=== PATIENT | female | born 1950 | race Caucasian/White ===

== ENCOUNTER → 2019-09-28 10:56 | Outpatient (CLI) | payer MEDICARE, SELFPAY ==
--- NOTE | ~2019-09-28 | XR_ITS ---
EXAMINATION: XR chest 2V 09/28/2019 11:09 INDICATION: Essential hypertension PROCEDURE: 2 view chest COMPARISON: No prior studies for comparison. FINDINGS: The lungs are clear. The cardiomediastinal silhouette is within normal limits. There are no pleural effusions. There is no pneumothorax suspected. IMPRESSION: 1: NO ACUTE CARDIOPULMONARY DISEASE. Reviewed, dictated and finalized at location B. ENGRAVER
== END ==
PROVIDERS: PCP Family Medicine; Visit Provider Physician Assistant
DX: I10 Essential (primary) hypertension (principal); R63.4 Abnormal weight loss
CPT/HCPCS: 71046

== ENCOUNTER 2020-05-20 14:58 | Observation (INO) | payer MEDICARE, SELFPAY ==
--- NOTE | ~2020-05-20 | CT_ITS ---
EXAMINATION: CTA brain carotid DATE: 05/20/2020 18:23 INDICATION: Left-sided facial numbness TECHNIQUE: Computed tomographic angiography (CTA) of the head was performed with 100 mL Omnipaque-350 intravenous contrast. CTA of the neck was performed with intravenous contrast. The dose-length produ ct was 1063.06 mGy-cm. Maximum intensity projection and volume rendered 3D-reconstructions were creat ed by the technologist on a separate workstation. Automated exposure control and iterative reconstruc tion technique were employed. COMPARISON: 05/20/2020 FINDINGS: HEAD CTA: There is no intracranial hemorrhage, acute infarction, or abnormal mass lesion. The ventric les are normal. There is no abnormal mass effect or midline shift. The curtis-white matter differentiat ion is normal. The basal cisterns are patent. The orbits are normal. The paranasal sinuses, mastoids and calvarium are normal. There is no significant stenosis of the basilar artery or posterior cerebral arteries. There is no si gnificant stenosis of the intracranial internal carotid arteries or the anterior or middle cerebral a rteries. The anterior communicating artery and right posterior communicating artery are normal. The l eft posterior communicating artery artery is hypoplastic or absent. There is no aneurysm. NECK CTA: The thyroid gland is unremarkable. The submandibular and parotid glands are symmetric. Ther e is no lymphadenopathy. There are no masses identified. The airway is unremarkable. Mild cervical sp ondylosis is noted. There are areas of air-trapping in the visualized lung apices which may reflect s mall airways disease. The superior mediastinum is unremarkable. There is 0% stenosis of the proximal right internal carotid artery relative to normal distal artery l umen diameter (NASCET criteria). There is 0% stenosis of the proximal left internal carotid artery re lative to normal distal artery lumen diameter. IMPRESSION: 1. No acute intracranial abnormality. Unremarkable head CTA. 2. 0% stenosis of the proximal right internal carotid artery relative to normal distal artery lumen d iameter (NASCET criteria). 3. 0% stenosis of the proximal left internal carotid artery relative to normal distal artery lumen di ameter. Reviewed, dictated and finalized at location A. IMPRESSION: 1. No acute intracranial abnormality. Unremarkable head CTA. 2. 0% stenosis of the proximal right internal carotid artery relative to normal distal artery lumen diameter (NASCET criteria). 3. 0% stenosis of the proximal left internal carotid artery relative to normal distal artery lumen diameter.
--- NOTE | ~2020-05-20 | MR_ITS ---
EXAMINATION: MR brain/brain stem wo/w con DATE: 05/22/2020 08:28 INDICATION: Stroke presenting with left facial numbness TECHNIQUE: Magnetic resonance imaging (MRI) of the brain and brainstem was performed without and with 10 mL Multihance intravenous contrast. Sequences included sagittal and axial T1-weighted SE, axial d iffusion-weighted FS SE, axial T2*-weighted GRE, axial T2-weighted FLAIR, and axial T2-weighted FSE. Postcontrast axial and coronal T1-weighted SE was obtained. Apparent diffusion coefficient (ADC) maps were created. COMPARISON: Brain CT and CT angiogram dated 05/20/2020 FINDINGS: There are no areas of restricted diffusion to suggest acute infarction. No intracranial hemorrhage or abnormal intracranial mass lesion. There are couple tiny foci of nonspecific white matter T2 hyperin tensity which is well within normal limits for age. There are no intraparenchymal signal abnormalitie s seen on the other pulse sequences. The ventricles are symmetric and normal in size. There are no ab normal extra-axial fluid collections. Flow voids are seen in the cerebral arteries on the T2-weighted sequences consistent with their expected patency. Mild mucoperiosteal thickening the bilateral ethmo id sinuses. Visualized orbits and soft tissues are unremarkable. There are no areas of abnormal enhan cement on the post contrast images. IMPRESSION: 1. Normal aging brain. No acute intracranial process or abnormally enhancing brain lesions. Reviewed, dictated and finalized at location A. IMPRESSION: 1. Normal aging brain. No acute intracranial process or abnormally enhancing br ain lesions.
--- NOTE | ~2020-05-20 | XR_ITS ---
XR chest 1V DATE: 05/20/2020 15:51 INDICATION: Dizziness, left facial numbness. TECHNIQUE: PA chest COMPARISON: 09/28/2019 PA and lateral views FINDINGS: Normal heart size. No hilar or mediastinal enlargement. No pulmonary infiltrate or consolid ation, pleural effusion or pulmonary vascular congestion or pneumothorax. Surgical clips, right upper quadrant, consistent with cholecystectomy. IMPRESSION: No active cardiopulmonary disease Reviewed, dictated and finalized at location A.
--- NOTE | ~2020-05-20 | CT_ITS ---
EXAMINATION: CT brain wo con DATE: 05/20/2020 15:40 INDICATION: Left facial numbness TECHNIQUE: Computed tomography (CT) of the head was performed without intravenous contrast. The mA wa s adjusted according to patient size. Iterative reconstruction technique was employed. Exam dose: 60 5.33 mGy-cm total exam DLP. COMPARISON: None FINDINGS: No intracranial mass lesion or hemorrhage or cerebrovascular accident. No midline shift or mass effects. Normal curtis-white matter differentiation. Normal ventricular size. No subdural or epidu ral hematoma. No fracture or bone destruction of the cranial vault. The mastoid air cells and included paranasal sinuses are normally developed and aerated. IMPRESSION: Negative CT examination would not be sensitive for detection of the any transient ischemic attack or hyperacut e ischemic cerebrovascular infarct. Reviewed, dictated and finalized at Location A. Reviewed, dictated and finalized at location A. IMPRESSION: Negative CT examination would not be sensitive for detection of the any transient ischem ic attack or hyperacute ischemic cerebrovascular infarct.
[2020-05-20 15:12] VITALS: BP 151/67; PULSE 76; RESP 18; TEMP 36.5; O2SAT 100
--- NOTE | 2020-05-20 15:15 | ECG_ITS ---
Measurements Intervals [place] Rate: 66 P: 70 OK: 159 QRS: 62 QRSD: 88 T: 61 QT: 405 QTc: 427 Interpretive Statements SINUS RHYTHM POSSIBLE LEFT ATRIAL ENLARGEMENT BORDERLINE ECG Electronically Signed On 05-20-2020 15:36:41 CDT by Philip Deal D.O.
[2020-05-20 15:30] LABS: Basophils Absolute Auto 0.1 K/mm3 (0.0-0.1); Basophils Percent Auto 0.7 % (0.2-1.2); Eosinophils Absolute Auto 0.1 K/mm3 (0-0.3); Eosinophils Percent Auto 1.3 % (0-4.4); Hematocrit 37.9 % (37.0-47.0); Hemoglobin 12.7 g/dL (12.0-15.0); Immature Granulocyte Absolute 0.03 K/mm3 (0.00-0.031); Immature Granulocyte Percent A 0.4 % (0-0.5); Lymphocytes Absolute Auto 2.33 K/mm3 (0.9-3.2); Lymphocytes Percent Auto 31.2 % (18.3-44.2); Mean Corpuscular HGB Conc 33.5 g/dl (32-36); Mean Corpuscular Hemoglobin 30.8 pg (26-34); Mean Corpuscular Volume 91.8 fl (80-100); Mean Platelet Volume 10.6 fl (7.4-10.4); Monocytes Absolute Auto 0.6 K/mm3 (0.1-0.6); Monocytes Percent Auto 8.4 % (2.6-8.5); Neutrophils Absolute Auto 4.3 K/mm3 (1.3-6.7); Platelet Count Result 203 k/mm3 (150-375); Red Blood Count 4.13 M/mm3 (4.2-5.4); Red Cell Distribution Width 12.8 % (11.5-14.5); White Blood Count 7.5 K/mm3 (4.5-10.0)
[2020-05-20 15:37] LABS: Prothrombin Time 12.4 Seconds (11.1-14.7)
[2020-05-20 15:39] LABS: Anion Gap 8 mmol/L (8-16); Blood Urea Nitrogen 17 mg/dL (7-17); Calcium 9.4 mg/dL (8.4-10.2); Carbon Dioxide 29 mmol/L (22-30); Chloride 96 mmol/L (98-107); Estimated CRCL calculation 41 ml/min; Estimated Glomerular Filt Rate 55; Glucose 109 mg/dL (65-105); Potassium 3.4 mmol/L (3.4-5.0); Sodium 133 mmol/L (137-145)
[2020-05-20 15:51] LABS: Troponin I < 0.012 ng/mL (0.000-0.034)
--- NOTE | 2020-05-20 16:33 | ED.NEUROSD ---
HPI - Neuro Symptoms/Deficit General Chief Complaint: Neuro Symptoms/Deficit Stated Complaint: l facial numbness Time Seen by Provider: 05/20/20 16:32 Source: patient Mode of arrival: ambulatory Limitations: no limitations History of Present Illness HPI Narrative: Patient is a 69-year-old female with a history of hypertension who presents for evaluation of left-sided facial numbness. Patient states that left-sided facial numbness has been present over the past 5 hours. She initially noticed the symptoms while she was at religion this morning, the facial numbness originated around the left side of her lip and left tongue, and then expanded to include her entire face. She states it has resided somewhat and she still feels numbness around her left tongue and left side of her lips. Patient without facial droop or dysarthria. No numbness or weakness in her upper or lower extremities. No difficulty with memory or recall. Patient does not have a previous history of any stroke or TIA. Patient states initially at religion she became dizzy, then experienced the facial numbness. She denies any current dizziness. No chest pain or palpitations. Related Data Home Medications Medication Instructions Recorded Confirmed calcium carbonate 500 mg calcium 500 mg PO DAILY 08/17/19 (1,250 mg) tablet raloxifene 60 mg tablet 60 mg PO DAILY 05/16/20 Allergies Allergy/AdvReac Type Severity Reaction Status Date / Time grass pollen Allergy Unknown Unknown Verified 05/20/20 17:56 paroxetine Allergy Unknown Nausea Verified 05/20/20 17:56 Review of Systems Review of Systems: Narrative: CONSTITUTIONAL: Denies fever, chills, or sweats. EYES: Denies visual changes, redness, or discharge. ENT: Denies rhinorrhea, congestion, sore throat, or otalgia. CARDIOVASCULAR: Denies chest pain, palpitations, or edema. RESPIRATORY: Denies cough or dyspnea. GASTROINTESTINAL: Denies abdominal pain, nausea, vomiting, or diarrhea. GENITOURINARY: Denies dysuria or hematuria. SKIN: Denies rash or itching. MUSCULOSKELETAL: Denies back pain, joint pain, or myalgia. NEUROLOGIC: Denies headache, or weakness. Reports numbness around the left lips, left tongue. No current dizziness. PSYCHIATRIC: Denies anxiety or depression. [facility] Past Medical History Medical History HTN (hypertension) Lactose intolerance Migraines Osteoporosis Surgical History Surgical History History of colposcopy History of cryosurgery Social History Social History Smoking status: Never smoker Second hand tobacco smoke exposure: No Alcohol intake: current Substance use: never Gender identity (if verbalized by the patient): Female Exam Narrative: Exam Narrative: GENERAL: Awake, alert, conversant HEAD: Normocephalic, atraumatic. EYES: PERRLA and EOMI. ENT: Nares clear, no rhinorrhea or epistaxis. Mucous membranes moist. NECK: Supple. CHEST: No respiratory distress, breathing even and non labored HEART: Regular rate, sinus rhythm ABDOMEN:Non distended, non tender EXTREMITIES: Normal range of motion. No edema. SKIN: Warm, dry, no rash. NEURO:No focal deficits. Alert and oriented x3. Finger to nose intact bilaterally. EOMs intact without nystagmus. No facial droop/asymmetry noted bilaterally. Grimace intact. Intact sensation in face. Hearing intact bilaterally. Shoulder shrug intact. Strength 5/5 bilateral upper extremities. Strength 5/5 bilateral lower extremities. Reflexes 2+ patellar. Heel to alvarez intact bilaterally. Ambulatory exam deferred. Course Vital Signs Vital signs: Vital Signs Temperature 36.5 C 05/20/20 15:12 Pulse Rate 76 05/20/20 15:12 Respiratory Rate 18 05/20/20 15:12 Blood Pressure 151/67 H 05/20/20 15:12 Pulse Oximetry 100 05/20/20 15:12 Temperature 36.5 C 05/20/20 15:12 Pul
[2020-05-20 16:45] VITALS: BP 150/85; PULSE 75; RESP 18; O2SAT 100
[2020-05-20] MEDS: ASPIRIN 81 MG CHEWABLE TABLET 324 MG PO (17:45)
[2020-05-20 18:58] VITALS: BP 139/78; PULSE 76; RESP 14; O2SAT 100
--- NOTE | 2020-05-20 19:00 | PM.IMHP ---
H&P: HPI History of Present Illness Date/Time: 05/20/20 19:00 Chief complaint: Left Facial Numbness Narrative: Lien Gonzalez is a very pleasant 69-year-old female with hypertension and osteoporosis who presented to the emergency department earlier this afternoon via private vehicle from home for evaluation of left-sided facial numbness. 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 After she completed thesong, she ate a sandwich and felt somewhat better. They returned home and approximately 3 hours thereafter she developed paresthesias on the left side of her lip and left tongue. Not long after she had paresthesias of the entire left side of her face and her symptoms remain at the time my evaluation. She denies vertigo, acute auditory and visual changes, focal weakness, palpitations, cardiac dysrhythmia, dysarthria, dysphagia, and difficulties with memory or recall. Of note, she was started on raloxifene daily within the past month or so for osteoporosis. Review of Systems Review of Systems: Narrative: Twelve systems were reviewed with pertinent positives and negatives as per HPI. No fever, chills, or sweats. No recent cold or flu symptoms. No sick contacts. No exertional chest pain or shortness of breath. She denies lower extremity edema, calf pain, tenderness, recent travel, and history of venous thromboembolism. more recently she has been following a FODMAP diet as she was having many GI issues and had weight loss. Her symptoms seem to have resolved with this new diet. Except as documented, all other systems were reviewed and are negative. [facility] Past Medical History Medical History (Updated 05/20/20 @ 22:27 by Corinna Shahid PA-C) Essential hypertension Osteoporosis Rosacea Surgical History Surgical History (Updated 05/20/20 @ 22:24 by Corinna Shahid PA-C) History of cholecystectomy (~06/2019) History of ventral hernia repair (~06/2019) Family History Family History Father Cerebrovascular accident Hypertension Coronary artery disease Sibling Hypertension Hepatitis C Paget's disease Irritable bowel syndrome Mother Hepatitis C Father Hypertension Cerebrovascular accident Family history of coronary artery disease Sibling Hypertension Family history of hepatitis Family history of irritable bowel syndrome Mother Family history of hepatitis Grandparent Carcinoma of colon Mother Family history of glaucoma Family history of hepatitis Father Hypertension Family history of cardiovascular disease Sibling Hypertension Family history of hepatitis Family history of malignant neoplasm of breast in first degree relative, Onset Age: 50 Grandparent Family history of cardiovascular disease Family history of malignant neoplasm Carcinoma of colon, Onset Age: 80 Social History Social History (Updated 05/20/20 @ 22:25 by Corinna Shahid PA-C) Social History: The patient lives in [place], [place] with her spouse. They have 2 grown children. She is a retired physical therapist. She is a lifelong non-smoker and drinks 2 glasses of wine a week. No illicit substance use. She designates her and 2 sons as her surrogate decision makers and she wishes to be a full code. Smoking status: Never smoker Second hand tobacco smoke exposure: No Alcohol intake: current Drinks per week: 2 Substance use: never Gender identity (if verbalized by the patient): Female Spiritual care concerns: No Meds Home Medications and Allergies Home Medications Medication Instructions Recorded Confirmed Type calcium carbonate 500 mg calcium 500 mg PO DAILY 08/17/19 05/20/20 History (1,250 mg) tablet alendronate 70 mg tablet 70 mg PO WEEKLY #14 tablet 09/16/19 05/20/20 Rx triamterene 37.5 1 cap PO DAILY #90 cap 09/16/19 05/20/20 Rx mg-hydroch
--- NOTE | 2020-05-20 19:15 | ADMGEN ---
This patient, Lien Gonzalez, was admitted to Medical Room 347-01. Patient/family oriented to hospital policies and general routines including ID bracelet, bed and alarms, visiting hours, pain management, procedures, bathroom and other care routines, personal items, smoking policy, room service/diet, and visiting hours. Valuables list has been completed. Information on how to activate the Rapid Response Team has been discussed. Patient/Family are encouraged to report perceived risks to care and to ask questions if they do not understand what they are told or what they should do.
[2020-05-20 19:37] VITALS: BP 134/65; PULSE 67; RESP 18; TEMP 36.8; O2SAT 99
[2020-05-20 20:00] VITALS: PULSE 72
[2020-05-21] VITALS (10 sets, daily range): BP systolic 106–111; BP diastolic 57–67; PULSE 60–75; RESP 16–18; TEMP 36–36.3; O2SAT 96–100
--- NOTE | 2020-05-21 | ECHO_ITS ---
Patient Info Name: Lien Gonzalez Age: 69 years : 1950 Gender: Female Ht: 64 in Wt: 119 lbs BSA: 1.56 m2 HR: 65 bpm BP: 106 / 57 mmHg Heart Rhythm: Sinus Rhythm Technical Quality: Good Exam Date: 05/21/2020 11:04 AM Exam Location: [facility] Patient Status: Inpatient Admit Date: 05/20/2020 Staff Ordering Physician: Beba Schaffer MD Auto Electrician: Gil Foreman RDCS, RT Attending Provider: Estrellita Lynn MD Referring Physician: Karime GUAJARDO; Exam Type: CA echo doppler w bubble study Study Info Indications R01.1 - Cardiac murmur, unspecified Complete two-dimensional, color flow and Doppler transthoracic echocardiogram is performed with agitated saline. Strain analysis performed. Summary 1. Complete two-dimensional, color flow and Doppler transthoracic echocardiogram is performed with agitated saline. 2. Strain analysis performed. 3. Left ventricular chamber dimension is normal. 4. Left ventricular systolic function is normal, estimated at 65-70%. 5. There is mildly increased left ventricular wall thickness. 6. Left ventricular septal wall motion is normal. 7. The left ventricular diastolic function is grade II diastolic dysfunction. 8. Global longitudinal strain is normal at -21 %. 9. Right ventricular chamber dimension is mildly enlarged. 10. Left atrial chamber dimension is mildly enlarged. 11. There is mild aortic valve calcification. 12. There is mild mitral valve regurgitation. 13. There is mild tricuspid valve regurgitation. 14. There is mild pulmonic regurgitation. 15. Intact interatrial septum visualized by color flow and agitated saline imaging. 16. Dilated inferior vena cava with <50% collapse upon inspiration consistent with elevated right atrial pressure, 15 mmHg. Left Ventricle Left ventricular chamber dimension is normal. Left ventricular systolic function is normal, estimated at 65-70%. There is mildly increased left ventricular wall thickness. Left ventricular septal wall motion is normal. The left ventricular diastolic function is grade II diastolic dysfunction. Global longitudinal strain is normal at -21 %. Right Ventricle Right ventricular chamber dimension is mildly enlarged. Right ventricular systolic function is normal. Left Atria Left atrial chamber dimension is mildly enlarged. Right Atria Right atrial chamber dimension is normal. Atrial Septum Intact interatrial septum visualized by color flow and agitated saline imaging. Aortic Valve The aortic valve is trileaflet. There is mild aortic valve sclerosis. There is no aortic valve stenosis. There is trace aortic valve regurgitation. There is mild aortic valve calcification. Pulmonic Valve The pulmonic valve is not well visualized. There is no pulmonic valve stenosis. There is mild pulmonic regurgitation. Mitral Valve The mitral valve has calcified annulus. There is no mitral valve stenosis. There is mild mitral valve regurgitation. Tricuspid Valve The tricuspid valve leaflets are normal. There is no significant tricuspid valve stenosis. There is mild tricuspid valve regurgitation. No pulmonary hypertension, estimated pulmonary arterial systolic pressure is 34 mmHg. Pericardium/Pleural The pericardium appears normal. There is trivial pericardial effusion. Inferior Vena Cava Dilated inferior vena cava with <50% collapse upon inspiration consistent with elevated right atrial pressure, 15 mmHg. Aorta
[2020-05-21 06:18] LABS: Alanine Aminotransferase 17 U/L (4-35); Albumin Level 3.7 g/dL (3.5-5.1); Alkaline Phosphatase 47 U/L (38-126); Anion Gap 3 mmol/L (8-16); Aspartate Amino Transferase 30 U/L (14-36); Bilirubin,Total 0.5 mg/dL (0.2-1.3); Blood Urea Nitrogen 15 mg/dL (7-17); Calcium 8.6 mg/dL (8.4-10.2); Carbon Dioxide 28 mmol/L (22-30); Chloride 103 mmol/L (98-107); Cholesterol 183 mg/dL (0-200); Estimated CRCL calculation 40 ml/min; Estimated Glomerular Filt Rate 55; Glucose 99 mg/dL (65-105); HDL Direct 86 mg/dL; Potassium 3.8 mmol/L (3.4-5.0); Sodium 134 mmol/L (137-145); Triglycerides 74 mg/dL (<150)
[2020-05-21 06:26] LABS: LDL Cholesterol Direct 74 mg/dL
[2020-05-21 07:17] LABS: Folic Acid 10.4 ng/mL (2.76->20)
[2020-05-21] MEDS: CALCIUM CARBONATE (OSCAL) 500 MG TABLET PO (08:29)
[2020-05-21] MEDS: ASPIRIN 81 MG ENTERIC TABLET PO (09:48)
[2020-05-21 10:41] LABS: Total Triiodothyronine (T3) 1.15 NG/ML (0.97-1.69)
--- NOTE | 2020-05-21 15:02 | WPDNEURCNPN ---
Assessment and Plan Assessment and plan (1) Osteoporosis: Code(s): M81.0 - Age-related osteoporosis without current pathological fracture Status: Acute (2) Essential hypertension: Code(s): I10 - Essential (primary) hypertension Status: Acute (3) Numbness and tingling of left side of face: Code(s): R20.0 - Anesthesia of skin; R20.2 - Paresthesia of skin Status: Acute Additional Plan patient tells me that her son has MS and has lot of questions about what could be the etiology of feeling numbness I discussed with her that this is a certainly a a diagnosis of exclusion I do not clinically feel that she has a Lyme disease or multiple sclerosis however the MRI of the brain is mandatory to look into it if not for anything else for the future reasons she also asked me whether the medication she has started about a month ago Evista could be responsible for this however if the brain MRI is negative I will not be quite sure whether the this episodic numbness was related to that this is something she needs to discuss with her physician who has prescribed the medication for the osteoporosis her questions were answered to the best of my satisfaction and to her satisfaction the workup pending is the brain MRI and also the echocardiogram she should continue with the aspirin daily Consult date: 05/21/20 Time Seen: 14:00 HPI: Lien Gonzalez 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 of the left side of the face without any numbness on the extremities and without any weakness she denies any headache nausea vomiting chest pain or shortness of breath her numbness has significantly improved overall except around her left-sided periorbital area which is subjective alone she is hypertensive had never had this episode before there is no family history of stroke she is nonsmoker nondrinker and has a BMI of 20.0 kilogram Review of Systems Review of Systems: All systems reviewed & are unremarkable except as noted in HPI and below PMFSH Past Medical History Medical History Essential hypertension Osteoporosis Rosacea Surgical History Surgical History History of cholecystectomy (~06/2019) History of ventral hernia repair (~06/2019) Family History Family History Father Cerebrovascular accident Hypertension Coronary artery disease Sibling Hypertension Hepatitis C Paget's disease Irritable bowel syndrome Mother Hepatitis C Father Hypertension Cerebrovascular accident Family history of coronary artery disease Sibling Hypertension Family history of hepatitis Family history of irritable bowel syndrome Mother Family history of hepatitis Grandparent Carcinoma of colon Mother Family history of glaucoma Family history of hepatitis Father Hypertension Family history of cardiovascular disease Sibling Hypertension Family history of hepatitis Family history of malignant neoplasm of breast in first degree relative, Onset Age: 50 Grandparent Family history of cardiovascular disease Family history of malignant neoplasm Carcinoma of colon, Onset Age: 80 Social History Social History Social History: The patient lives in [place], [place] with her spouse. They have 2 grown children. She is a retired physical therapist. She is a lifelong non-smoker and drinks 2 glasses of wine a week. No illicit substance use. She designates her and 2 sons as her surrogate decision makers and she wishes to be a full code. Smoking status: Never smoker Second hand tobacco smoke exposure: No Alcohol intake: current Drinks per week: 2 Substance use: never Gender identity (if verbalized by the patient): Female Spiritual care concerns: No Meds
--- NOTE | 2020-05-21 15:31 | PM.IMPN ---
Progress Note: A&P Assessment and Plan (1) Numbness and tingling of left side of face: Code(s): R20.0 - Anesthesia of skin; R20.2 - Paresthesia of skin Status: Acute Assessment and Plan: History is concerning for possible TIA, and it may not be coincidence that she recently started Raloxifene. Head CT negative, head and neck CTA showing 0% stenosis of right and left ICA and no acute intracranial abnormalities. Lipid panel was reviewed and is well within normal limits. Will hold on initiaton of statin therapy at this time. Echo with bubble study was performed with EF 65-70%, grade 2 diastolic dysfunction, and intact interatrial septum She received 324 mg aspirin upon presentation and will continue daily baby aspirin B12 and folate are within normal limits. TSH is very mildly elevated with T3 and T4 within normal limits. Telemetry was reviewed showing normal sinus rhythm with HR in the 60-70s . Continue to monitor on telemetry overnight. She is awaiting MRI. This could not be performed today, therefore she will continue to be observed overnight while awaiting MRI tomorrow morning. (2) Essential hypertension: Code(s): I10 - Essential (primary) hypertension Status: Acute Assessment and Plan: Blood pressures were reviewed and her initial reading was 151/67 on arrival to the emergency department. Permissive hypertension Allowed in the setting of Possible acute CVA. blood pressure reviewed today and is stable in the 110s systolic. Triamterene -HCTZ has been held in light of mild hyponatremia. Monitor blood pressures daily. (3) Osteoporosis: Code(s): M81.0 - Age-related osteoporosis without current pathological fracture Status: Acute Assessment and Plan: She was recently started on raloxifene in the past month. It is possible that this could have contributed to her symptoms, although this is unclear and risks versus benefits of this medication will need to be discussed with the prescriber. Raloxifene has been placed on hold at this time (4) Hyponatremia: Code(s): E87.1 - Hypo-osmolality and hyponatremia Status: Acute Assessment and Plan: Mild hyponatremia, likely related to combination thiazide diuretic therapy. Sodium improved to 134 today. Triamterene/hydrochlorothiazide on hold for now. Resume when clinically appropriate. Subjective Date/time seen: 05/21/20 15:31 Interval history: Date of service: 05/21/2020 Ms. Gonzalez is a 69-year-old female with a history of osteoporosis and hypertension who is seen in follow-up for facial numbness and is being evaluated for CVA vs TIA. She reports that she is feeling much better at this time. Her symptoms have diminished significantly. She still has a small area of her lip and tongue on the left side that is numb. She does not have any additional numbness, tingling, or burning. She had been feeling lightheaded but this has resolved. She denies feeling weak or dizzy. She denies visual changes, speech changes, dysphagia, confusion, headache, or gait changes. She has been ambulating around the room without difficulty and feels steady on her feet. No nausea or vomiting. She has no additional concerns at this time. Her appetite has been good. She has been urinating and had a bowel movement and has not had any issues. She has no acute pain at this time. No chest pain, shortness breath, or palpitations. Review of Systems Review of Systems: Narrative: A 12 point review of systems was reviewed with pertinent positives and negatives as per HPI. Exam Narrative: Exam Narrative: Ms. Gonzalez is a well-nourished, well-appearing 69-year-old female who is sitting up at the bedside. She appears comfortable and is in no acute respiratory distress. HR 72, BP 106/57, RR 18, T 96.8?, 96% on room air Neuro: awake, alert and oriented x4, speech clear, CN II-XII intact, strength 5/5 thro
[2020-05-22] VITALS: PULSE 57
[2020-05-22 04:21] VITALS: PULSE 55
[2020-05-22 04:49] VITALS: BP 100/43; PULSE 57; RESP 14; TEMP 36.4; O2SAT 98
[2020-05-22 05:42] LABS: Hematocrit 34.8 % (37.0-47.0); Hemoglobin 11.5 g/dL (12.0-15.0); Mean Corpuscular Hemoglobin 30.3 pg (26-34); Mean Corpuscular Volume 91.6 fl (80-100); Mean Platelet Volume 10.5 fl (7.4-10.4); Platelet Count Result 185 k/mm3 (150-375); Red Cell Distribution Width 12.7 % (11.5-14.5); White Blood Count 5.8 K/mm3 (4.5-10.0)
[2020-05-22 05:59] LABS: Anion Gap 4 mmol/L (8-16); Blood Urea Nitrogen 20 mg/dL (7-17); Calcium 8.4 mg/dL (8.4-10.2); Carbon Dioxide 30 mmol/L (22-30); Chloride 101 mmol/L (98-107); Estimated CRCL calculation 40 ml/min; Estimated Glomerular Filt Rate 55; Glucose 91 mg/dL (65-105); Potassium 3.8 mmol/L (3.4-5.0); Sodium 135 mmol/L (137-145)
[2020-05-22 06:32] LABS: Glucose Point of Care 92 (65-105)
[2020-05-22] MEDS: ASPIRIN 81 MG ENTERIC TABLET PO (08:49)
[2020-05-22] MEDS: CALCIUM CARBONATE (OSCAL) 500 MG TABLET PO (08:49)
--- NOTE | 2020-05-22 10:14 | PM.DS ---
DS: Admitting Diagnosis Admitting Diagnosis Admitting Diagnosis: Left Facial Numbness DS: Discharge Diagnosis Discharge Diagnosis (1) Transient ischemic attack (TIA): Code(s): G45.9 - Transient cerebral ischemic attack, unspecified Status: Acute Assessment and Plan: Discharge Summary (Date of service 05/22/20): Mrs. Gonzalez is a 69 y.o. female with PMH significant for osteoporosis (recently started on raloxifene 1 month prior), hypertension, and rosacea who presented to the emergency department for the evaluation of left-sided facial numbness including numbness of the left lip, left tongue, and left face. Initial workup in the emergency department CT brain with no evidence of mass, hemorrhage, or infarction. Labs demonstrated mild hyponatremia, low chloride, and troponin <0.012. She was treated with 324mg ASA. TPA was not given due to minimal symptoms (NIHSS 1 for mild sensory deficit). Dr. Adkins with neurology was consulted and recommended CTA, MRI, and echo with bubble study. The patient was admitted for further workup for possible TIA/CVA. Head and neck CTA demonstrated 0% stenosis of right and left ICA and no acute intracranial abnormalities. Lipid panel was reviewed and well within normal limits with excellent HDL of 86 and LDL of 74. The patient wanted to hold on starting statin therapy and discuss this with Dr. Goss. I discussed that statin therapy is generally recommended for secondary ASCVD prevention given concern for TIA. Echo with bubble study was performed and demonstrated EF 65-70%, grade 2 diastolic dysfunction, and intact interatrial septum. B12 and folate were within normal limits. TSH was very mildly elevated with T3 and T4 within normal limits, suggesting subclinical hypothyroidism. Telemetry was reviewed and demonstrated normal sinus rhythm with HR in the 60-70s. MRI was performed and demonstrated no areas of restricted diffusion to suggest acute infarct. She felt much better with near-complete resolution of symptoms. She requested to go home and was discharged home in stable condition on the afternoon of 05/22/20. She was instructed to hold raloxifine and discuss this with the prescribing provider. She was advised to begin ASA EC 81mg and discuss statin therapy with her PCP. (2) Essential hypertension: Code(s): I10 - Essential (primary) hypertension Status: Acute Assessment and Plan: Blood pressures were reviewed and her initial reading was 151/67 on arrival to the emergency department. Permissive hypertension was allowed due to concern for possible acute CVA. Triamterene-HCTZ was held in light of mild hyponatremia and to allow for permissive hypertension. Blood pressures were at target with a few soft readings so triamterene-HCTZ was held at discharge and the patient was encouraged to keep a BP log and follow-up with her PCP outpatient. (3) Osteoporosis: Code(s): M81.0 - Age-related osteoporosis without current pathological fracture Status: Acute Assessment and Plan: She was recently started on raloxifene in the past month. It is possible that this could have contributed to her symptoms, although this is unclear and risks versus benefits of this medication will need to be discussed with the prescriber. Raloxifene was held at discharge and she was advised to discuss this with her PCP and specialists. (4) Hyponatremia: Code(s): E87.1 - Hypo-osmolality and hyponatremia Status: Acute Assessment and Plan: Mild hyponatremia, likely related to combination thiazide diuretic therapy. Sodium improved while triamterene/hydrochlorothiazide was held. (5) Subclinical hypothyroidism: Code(s): E03.9 - Hypothyroidism, unspecified Status: Acute Assessment and Plan: TSH was very mildly elevated with T3 and T4 within normal limits, suggesting subclinical hypothyroidism. Recommend repeat TSH w/reflex fT4 in 4 weeks outpatient. DS: Summary
--- NOTE | 2020-05-22 10:58 | WPDNEUROPN ---
Progress Note: A&P Additional Plan continue the treatment as such Review of Systems Review of Systems: All systems reviewed & are unremarkable except as noted in HPI and below Exam Narrative: Exam Narrative: examination reveals her to be awake alert cooperative head normocephalic with no Tamar bruit ear nose throat examination normal neck is supple with no cervical bruit no thyromegaly no lymphadenopathy motor examination revealed her to have no focal motor deficit reflexes symmetrical plantars downgoing and the normal cranial nerves examination Objective Data Vital Signs Vital Signs: Vital Signs - 24 hr 05/21/20 12:00 05/21/20 14:00 05/21/20 16:00 Temperature 36.3 C L Pulse Rate 75 62 64 Respiratory Rate 18 Blood Pressure 111/67 Pulse Oximetry 100 05/21/20 20:00 05/21/20 20:09 05/22/20 00:00 Temperature 36.2 C L Pulse Rate 66 64 57 L Respiratory Rate 16 Blood Pressure 106/61 Pulse Oximetry 100 05/22/20 04:21 05/22/20 04:49 Temperature 36.4 C Pulse Rate 55 L 57 L Respiratory Rate 14 Blood Pressure 100/43 L Pulse Oximetry 98 Intake/Output Intake/Output: Intake & Output 05/19/20 05/20/20 05/21/20 05/22/20 23:59 23:59 23:59 23:59 Intake Total 1970 440 Output Total 2750 1500 Balance -780 -1060 Meds/Results Medications: Active Medications Generic Name Dose Route Start Last Admin Trade Name Freq PRN Reason Stop Dose Admin Acetaminophen 650 mg 05/20/20 17:54 Tylenol Tablet PO Q4H PRN Mild Pain (1-3) or Fever Aspirin 81 mg 05/21/20 09:05 05/22/20 08:49 Aspirin Ec PO 81 mg QAM ACE Administration Calcium Carbonate 500 mg 05/21/20 09:00 05/22/20 08:49 Oscal 500 Mg PO 500 mg DAILY ACE Administration Radiology Results: ITS Impressions Chest X-Ray 05/20/20 15:53 IMPRESSION: No active cardiopulmonary disease Head CT 05/20/20 15:55 IMPRESSION: Negative CT examination would not be sensitive for detection of the any transient ischemic attack or hyperacute ischemic cerebrovascular infarct. Head/Neck CTA 05/21/20 09:33 IMPRESSION: 1. No acute intracranial abnormality. Unremarkable head CTA. 2. 0% stenosis of the proximal right internal carotid artery relative to normal distal artery lumen diameter (NASCET criteria). 3. 0% stenosis of the proximal left internal carotid artery relative to normal distal artery lumen diameter. Brain MRI 05/22/20 09:28 IMPRESSION: 1. Normal aging brain. No acute intracranial process or abnormally enhancing brain lesions. Labs Labs: Laboratory Results - last 24 hr 05/20/20 05/22/20 05/22/20 15:18 05:27 05:27 WBC 5.8 RBC 3.80 L Hgb 11.5 L Hct 34.8 L MCV 91.6 MCH 30.3 MCHC 33.0 RDW 12.7 Plt Count 185 MPV 10.5 H Sodium 135 L Potassium 3.8 Chloride 101 Carbon Dioxide 30 Anion Gap 4 L BUN 20 H Creatinine 1.00 Estim Creat Clear Calc 40 Estimated GFR 55 L Glucose 91 POC Capillary Glucose 92 Calcium 8.4 Quality VTE Prophylaxis VTE prophylaxis: mechanical ordered
== END 2020-05-22 11:30 | disposition home or self-care (01) ==
LOC: ANHED 18:15 → ANH3MED 18:47
PROVIDERS: Family Medicine; Physician Assistant; Admitting Provider Family Medicine; Emergency Provider Emergency Medicine; PCP Family Medicine; Visit Provider Family Medicine
DX: G45.9 Transient cerebral ischemic attack, unspecified (principal); R20.0 Anesthesia of skin; R20.2 Paresthesia of skin; I10 Essential (primary) hypertension; M81.0 Age-related osteoporosis without current pathological fracture; E87.1 Hypo-osmolality and hyponatremia
CPT/HCPCS: 36415; 70450; 70496; 70498; 70553; 71045; 80048; 80053; 80061; 82607; 82746; 82948; 84439; 84443; 84480; 84484; 85025; 85027; 85610; 85730; 93005; 93306; 96375; 99285; A9270; A9577; G0378; Q9967

== ENCOUNTER → 2021-04-27 01:49 | Outpatient (CLI) | payer MEDICARE, SELFPAY ==
[2021-04-27 17:52] LABS: SARS-CoV-2 RNA PCR Negative
== END ==
PROVIDERS: PCP Family Medicine; Visit Provider Physician Assistant
DX: R68.89 Other general symptoms and signs (principal); Z20.822 Contact with and (suspected) exposure to COVID-19
CPT/HCPCS: C9803; U0003; U0005

== ENCOUNTER 2023-10-24 11:45 | Emergency (ER) | payer MEDICARE, SELFPAY ==
[2023-10-24 11:59] VITALS: BP 102/72; PULSE 65; RESP 18; TEMP 36.1; O2SAT 100
--- NOTE | 2023-10-24 12:23 | ED.SKABFB ---
HPI - Skin/Abscess/Foreign Bdy General Chief complaint: Skin/Abscess/Foreign Body Stated complaint: RASH Time Seen by Provider: 10/24/23 12:23 Source: patient Mode of arrival: ambulatory Limitations: no limitations History of Present Illness HPI narrative: 72-year-old female presents with complaint of painful rash to left thigh for 6 days. States last night she had some tenderness to front of her thigh with touch and some tingling. Patient reports history of shingles. Wanted to check and see if this is a shingles rash and if she is contagious. All systems reviewed and negative except as noted above. Related Data Home Medications Medication Instructions Recorded Confirmed calcium carbonate 500 mg calcium 500 mg PO DAILY 08/17/19 06/24/23 (1,250 mg) tablet (Calcium 500) riboflavin (vitamin B2) 400 mg 200 mg PO BID 05/15/21 06/24/23 tablet cholecalciferol (vitamin D3) 25 25 mcg PO DAILY 10/09/21 06/24/23 mcg (1,000 unit) capsule magnesium 250 mg tablet 250 mg PO DAILY 06/18/22 06/24/23 fluorouracil 5 % topical cream 1 applic topical BID 06/24/23 06/24/23 Allergies Allergy/AdvReac Type Severity Reaction Status Date / Time grass pollen Allergy Unknown Unknown Verified 06/24/23 07:59 Review of Systems Review of Systems: CONSTITUTIONAL: Denies fever, chills, or sweats. EYES: Denies visual changes, redness, or discharge. ENT: Denies rhinorrhea, congestion, sore throat, or otalgia. CARDIOVASCULAR: Denies chest pain, palpitations, or edema. RESPIRATORY: Denies cough or dyspnea. GASTROINTESTINAL: Denies abdominal pain, nausea, vomiting, or diarrhea. GENITOURINARY: Denies dysuria or hematuria. SKIN: Painful rash to left thigh and mons pubis. MUSCULOSKELETAL: Denies back pain, joint pain, or myalgia. NEUROLOGIC: Denies headache, numbness, or weakness. PSYCHIATRIC: Denies anxiety or depression. All other systems reviewed are negative, except as documented in HPI. [facility] Past Medical History Medical History Essential hypertension Osteoporosis Rosacea Vestibular migraine Surgical History Surgical History History of cholecystectomy (~06/2019) History of ventral hernia repair (~06/2019) Family History Family History Father Cerebrovascular accident Hypertension Coronary artery disease Sibling Hypertension Hepatitis C Paget's disease Irritable bowel syndrome Mother Hepatitis C Father Hypertension Cerebrovascular accident Family history of coronary artery disease Sibling Hypertension Family history of hepatitis Family history of irritable bowel syndrome Mother Family history of hepatitis Grandparent Carcinoma of colon Mother Family history of glaucoma Family history of hepatitis Father Hypertension Family history of cardiovascular disease Sibling Hypertension Family history of hepatitis Family history of malignant neoplasm of breast in first degree relative, Onset Age: 50 Grandparent Family history of cardiovascular disease Family history of malignant neoplasm Carcinoma of colon, Onset Age: 80 Social History Social History Social History: The patient lives in [place], [place] with her spouse. They have 2 grown children. She is a retired physical therapist. She is a lifelong non-smoker and drinks 2 glasses of wine a week. No illicit substance use. She designates her and 2 sons as her surrogate decision makers and she wishes to be a full code. Smoking status: Never smoker Second hand tobacco smoke exposure: No Alcohol intake: current Drinks per week: 2 Substance use: never Lack of Transportation: No Lack of Food: Never True Concerned About Future Housing: No Difficulty Paying Gas/Electric Bills: No Difficulty Paying for Med
== END 2023-10-24 12:38 | disposition home or self-care (01) ==
PROVIDERS: Emergency Provider Nurse Practitioner Family; PCP Family Medicine
DX: B02.9 Zoster without complications (principal); I10 Essential (primary) hypertension; M81.0 Age-related osteoporosis without current pathological fracture
CPT/HCPCS: 99211; G0463